=== PATIENT | male | born 1975 | race Two or more races ===

== ENCOUNTER 2024-02-11 20:03 | Emergency (ER) | payer OTHER ==
[~2024-02-11] VITALS: Ht 162.6 cm; Wt 71.1 kg
--- NOTE | 2024-02-11 20:32 | ED.PDOC ---
History of Present Illness HPI Comments 48 year old male presented with complaints of right sided testicular pain and swelling for last 2 days, that worsened today, that made him come to the ER today. He mentioned that he has associated right groin pain and lower abdominal pain.Patient lifted some heavy weight two days ago. Patient denied any recent trauma. Patient denied any complaints of burning micturition, penile discharge, recent trauma, nausea, vomiting, headache, dizziness, chest pain, shortness of breath. pt was concerned about having STI. He mentioned he was taking antihypertensive Meds but stopped taking long time ago. Past medical history Hypertension Past surgical history Denied Social history Denied smoking, alcohol, marijuana or any other drug intake Medication history Denied Family history Nonsignificant Review of system As described in the HPI Examination General Appearance: Alert, Oriented X3, Cooperative, No acute distress HEENT: EOMI Respiratory: Clear to auscultation, Normal air movement Cardiovascular: Regular rate, Normal S1, Normal S2 Abdominal: Normal bowel sounds Extremities: No cyanosis, No edema, Normal pulses, No tenderness/swelling Skin: No rashes, No breakdown Neuro: Normal speech and tone Testicular examination : Right-sided testicular swelling and tenderness, negative cremasteric reflex, swelling not increase on coughing, right-sided mild groin tenderness. Time Seen by MD: 20:05 Reviewed Notes: Nurses Notes Allergies: Coded Allergies: NO KNOWN ALLERGIES (Unverified , 02/11/24) Home Meds Active Scripts Doxycycline Hyclate (DOXYCYCLINE HYCLATE) 100 Mg Tab, 1 TAB PO BID, #20 TAB Prov:EBONI FLORES RESIDENT 02/12/24 Levofloxacin Hemihydrate (LEVOFLOXACIN) 750 Mg Tab, 1 TAB PO DAILY, #5 TAB Prov:EBONI FLORES RESIDENT 02/12/24 Information Source: Patient Differential Dx Considerations may include: Testicular torsion, inguinal hernia, hydrocele, varicocele, spermatocele, epidi dymal cyst, epididymitis X-Ray, Labs, Meds, VS Vital Signs Date Time Temp Pulse Resp B/P (MAP) Pulse Ox O2 Delivery O2 Flow Rate FiO2 02/12/24 00:55 99.1 61 12 180/111 (134) 99 99.1 02/11/24 20:53 99.1 70 20 178/119 (138) 99 Lab Test 02/11/24 22:40 02/11/24 21:36 Range/Units Urine Color Light-yellow Yellow Urine Clarity Clear Clear Urine pH 5.0 5.0-9.0 Urine Specific [place] 1.026 1.001-1.035 Urine Protein 1+ H Negative Urine Ketones 1+ H Negative Urine Blood 3+ H Negative /uL Urine Nitrite Negative Negative Urine Bilirubin Negative Negative Urine Urobilinogen Normal Negative mg/dL Urine Leukocyte Esterase 1+ Negative /uL Urine RBC 20 0 - 3 /hpf Urine WBC 21 0 - 3 /hpf Urine Squamous Epithelial Cells Few <5 /hpf Urine Bacteria Few H None Seen /hpf Urine Mucus Few None Seen Urine Glucose Normal Normal mg/dL White Blood Count 7.4 4.4-10.8 10^3/uL Red Blood Count 4.22 L 4.5-5.90 10^6/uL Hemoglobin 12.8 L 13.5-17.5 g/dL Hematocrit 37.9 L 41.0-53.0 % Mean Corpuscular Volume 89.9 80.0-100.0 fL Mean Corpuscular Hemoglobin 30.4 28.0-32.0 pg Mean Corpuscular Hemoglobin Concent 33.8 32.0-36.0 g/dL Red Cell Distribution Width 13.8 11.8-14.3 % Platelet Count 294 140-450 10^3/uL Mean Platelet Volume 9.2 6.9-10.8 fL Neutrophils (%) (Auto) 70.5 37.0-80.0 % Lymphocytes (%) (Auto) 21.7 10.0-50.0 % Monocytes (%) (Auto) 6.5 0.0-12.0 % Eosinophils (%) (Auto) 0.7 0.0-7.0 % Basophils (%) (Auto) 0.6 0.0-2.0 % Neutrophils # (Auto) 5.2 1.6-8.6 10 ^3/uL Lymphocytes # (Auto) 1.6 0.4-5.4 10 ^3/uL Monocytes # (Auto) 0.5 0-1.3 10 ^3/uL Eosinophils # (Auto) 0.1 0-0.8 10 ^3/uL Basophils # (Auto) 0 0-0.2 10 ^3/uL Nucleated Red Blood Cells 0.1 % Current Medications Medications (Trade) Dose Ordered Sig/Ana Route Start Time Stop Time Status Last Admin Acetaminophen/ Hydrocodone Bitart (Harrell 5/325MG Tab) 1 tab ONCE ONCE PO 02/11/24 21:45 02/11/24 22:00 DC 02/12/24 01:05 X-Ray, Labs, Meds, VS Comment PATIENT: TYE PARKEROACCT: [id number] UNIT: [id number] : 1975 LOC: ER ROOM / BED: / AGE / SEX: 48 / M ADM STATUS: REG ER SERVICE 29 ORDERING PHYSICIAN: EBONI FLORES RESIDENT PROCEDURE(s): TESUS - TESTICULAR ULTRASOUND REASON: right sided tesicular pain and swelling ORDER NUMBER(s): [id number], ACCESSION NUMBER(s): [id number] Procedure: US TESTICULAR ULTRASOUND Study Date and Requested Time: 02/11/2024 08:39 PM History: right sided tesicular pain and swelling Comparison: None Technique: Multiple high-resolution grayscale images of scrotal contents obtained. Color and spectral Doppler used for evaluation of testicular blood flow. Findings: Right testicle measures 4.1 x 2.7 x 3 cm with homogenous echotexture and normal contours. Right epididymal head measures 1.6 cm with a 0.4 cm cyst Left testicle measures 4.3 x 3 x 2.9 cm with homogenous echotexture and normal contours. Left epididymal head measures 1.5 cm and is within normal limits. Normal testicular color and spectral Doppler flow bilaterally. No evidence of testicular torsion. Small to moderate bilateral hydroceles. Questionable right- sided varicocele. Impression: Small to moderate bilateral hydroceles. No evidence of testicular torsion. 0.4 cm right epididymal head cyst. Questionable right-sided varicocele. ATED BY: PATSY CARABALLO DO DICTATED DATE/TIME: 02/11/242113 SIGNED BY: PATSY CARABALLO DO Time of 1ST Reevaluation: 00:23 Reevaluation 1ST: Unchanged Patient Education/Counseling: Diagnosis, Treatment Family Education/Counseling: No Family Present Comments Patient presented with complaints of Right testicular Pain. Workup was ordered Patient was given Harrell 5mg/325mg once Testicular USG revealed Small to moderate bilateral hydroceles. No evidence of testicular torsion. 0.4 cm right epididymal head cyst. Questionable right-sided varicocele. Urine routine showed 1+ LE, 21 WBC, 3+ blood and few bacteria. pt was given IV Ceftriaxone 1gm once and IV doxycycline once, IV hydralazine 5mg once Patient has been adequately monitored in the ER for stability/improvement. He was discharged to home, was advised to follow up with PCP within 1-2 days and surgeon within 1-2 weeks. pt was discharged with levofloxacin 750mg X 5 days and doxycycline 100mg BID X 10 days. Departure 1 Departure Time of Disposition: 00:49 Impression: Primary Impression: Epididymitis Additional Impressions: Epididymal cyst Bilateral hydrocele Right varicocele Disposition: HOME / SELF CARE / HOMELESS Condition: Stable Additional Instructions: You MUST follow-up with your primary care/family doctor in 1 to 2 days. If you are unable to see your primary care/family doctor, please return to our emergency room for re-assessment and re-evaluation in 1 to 2 days. Return to the emergency room here in our facility or to the nearest ER [facility] if your symptoms change or worsen. e-Prescriptions Doxycycline Hyclate (DOXYCYCLINE HYCLATE) 100 Mg Tab 1 TAB PO BID, #20 TAB Prov: EBONI FLORES RESIDENT 02/12/24 Levofloxacin Hemihydrate (LEVOFLOXACIN) 750 Mg Tab 1 TAB PO DAILY, #5 TAB Prov: EBONI FLORES RESIDENT 02/12/24 Discharged With: Self EBONI FLORES RESIDENT Feb 11, 2024 20:32
--- NOTE | 2024-02-11 21:17 | DVH ---
Procedure: US TESTICULAR ULTRASOUND Study Date and Requested Time: 02/11/2024 08:39 PM History: right sided tesicular pain and swelling Comparison: None Technique: Multiple high-resolution grayscale images of scrotal contents obtained. Color and spectral Doppler used for evaluation of testicular blood flow. Findings: Right testicle measures 4.1 x 2.7 x 3 cm with homogenous echotexture and normal contours. Right epidi dymal head measures 1.6 cm with a 0.4 cm cyst Left testicle measures 4.3 x 3 x 2.9 cm with homogenous echotexture and normal contours. Left epididy mal head measures 1.5 cm and is within normal limits. Normal testicular color and spectral Doppler flow bilaterally. No evidence of testicular torsion. Sma ll to moderate bilateral hydroceles. Questionable right-sided varicocele. Impression: Small to moderate bilateral hydroceles. No evidence of testicular torsion. 0.4 cm right epididymal head cyst. Questionable right-sided varicocele.
[2024-02-11 22:00] LABS: Basophils # (auto) 0 10 ^3/uL (0-0.2); Basophils % (auto) 0.6 % (0.0-2.0); Eosinophils # (auto) 0.1 10 ^3/uL (0-0.8); Eosinophils % (auto) 0.7 % (0.0-7.0); Hematocrit 37.9 % (41.0-53.0); Hemoglobin 12.8 g/dL (13.5-17.5); Lymphocytes # (auto) 1.6 10 ^3/uL (0.4-5.4); Lymphocytes % (auto) 21.7 % (10.0-50.0); Mean Corpuscular Hemoglobin 30.4 pg (28.0-32.0); Mean Corpuscular Hgb Conc. 33.8 g/dL (32.0-36.0); Mean Corpuscular Volume 89.9 fL (80.0-100.0); Monocytes # (auto) 0.5 10 ^3/uL (0-1.3); Monocytes % (auto) 6.5 % (0.0-12.0); Neutrophils # (auto) 5.2 10 ^3/uL (1.6-8.6); Neutrophils % (auto) 70.5 % (37.0-80.0); Nucleated Red Blood Cells % 0.1 %; Platelet Count (auto) 294 10^3/uL (140-450); Red Blood Cells 4.22 10^6/uL (4.5-5.90); Red Cell Distribution Width 13.8 % (11.8-14.3); White Blood Cell 7.4 10^3/uL (4.4-10.8)
[2024-02-12 00:34] LABS: Urine Bacteria FEW /hpf (None Seen); Urine Blood 3+ /uL (Negative); Urine Clarity Clear (Clear); Urine Color Light-Yellow (Yellow); Urine Mucus FEW (None Seen); Urine Protein, UAD 1+ (Negative); Urine Specific Gravity 1.026 (1.001-1.035); Urine Urobilinogen Normal (Negative); Urine WBC 21 /hpf (0 - 3)
[2024-02-12] MEDS ORDERED: LEVO750T40 PO (00:47)
[2024-02-12 00:55] VITALS: PULSE 61; RESP 12; TEMP 99.1; O2SAT 99
[2024-02-12] MEDS ORDERED: DOXY-286 PO (00:56)
[2024-02-12] MEDS: HYDROcodone-ACET 5/325MG TAB PO ONE (01:05)
[2024-02-12] MEDS: DOXYCYCLINE 100MG/250ML 250 ML IV ONE (01:07)
[2024-02-12] MEDS: hydrALAZINE HCL 20 MG/ML VL IV ONE (02:07)
[2024-02-12] MEDS: cefTRIAXone 1GM/50ML D5W 50 ML IV ONE (02:13)
[2024-02-12 03:18] VITALS: BP 182/104
[2024-02-12] MEDS ORDERED: cefTRIAXone 1GM/50ML D5W 50 ML IV ONE (09:00)
== END 2024-02-12 04:08 | disposition home or self-care (01) ==
LOC: ER 20:03
DX: N50.3 Cyst of epididymis (principal); N43.3 Hydrocele, unspecified; I86.1 Scrotal varices; I10 Essential (primary) hypertension
CPT/HCPCS: 36415; 76870; 81001; 85025; 96365; 96367; 96375; 99285; J0360; J0696; 96366; J3490